=== PATIENT | male | born 1985 | race American Indian/Alaskan Native ===

== ENCOUNTER 2017-04-23 16:37 | Emergency (ER) | payer OTHER ==
[2017-04-23 16:37] VITALS: BMI 38.4
[2017-04-23 16:53] VITALS: RESP 18; TEMP 99
[2017-04-23] MEDS ORDERED: Albuterol-Ipratrop 3 mg / 0.5 (3 ml) UD IH STA ×3 (17:04→18:32)
--- NOTE | 2017-04-23 17:16 | ED PDOC ---
Arrival/HPI - General Chief Complaint: Respiratory Distress Time Seen by Provider: 04/23/17 17:04 Historian: Patient - History of Present Illness Narrative History of Present Illness (Text): 04/23/17 17:05 Marciano Osorio is a 31 year old male, whose past medical history includes asthma, who presents to the emergency department complaining of coughing and shortness of breath since this morning. Patient states that coughing started first this morning causing him to use his nebulizer, then patient began to feel short of breath later on and used his nebulizer again. Patient denies any fevers or any other complaint at this time. Patient endorses that he smokes 10 cigarettes a day. Patient also occasionally smokes marijuana and drinks alcohol. Time/Duration: 4-6 hours Symptom Onset: Gradual Symptom Course: Unchanged Activities at Onset: Rest Context: Home Past Medical History - Provider Review Nursing Documentation Reviewed: Yes - Infectious Disease Hx of Infectious Diseases: None - Tetanus Immunization Tetanus Immunization: Unknown - Cardiac Hx Cardiac Disorders: No - Pulmonary Hx Respiratory Disorders: Yes (SMOKES CIGARETTES) Hx Asthma: Yes Hx Bronchitis: Yes Hx Pneumonia: Yes - Neurological Hx Neurological Disorder: No - HEENT Hx HEENT Disorder: No - Renal Hx Renal Disorder: No - Endocrine/Metabolic Hx Endocrine Disorders: No - Hematological/Oncological Hx Blood Disorders: No - Integumentary Hx Dermatological Disorder: No - Musculoskeletal/Rheumatological Hx Musculoskeletal Disorders: Yes (BULGING DISC-EPIDURALS) Hx Back Pain: Yes Hx Falls: No Hx Herniated Disk: Yes (EPIDURALS) - Gastrointestinal Hx Gastrointestinal Disorders: No - Genitourinary/Gynecological Hx Genitourinary Disorders: No - Psychiatric Hx Psychophysiologic Disorder: (OBESITY,SRINKS ALCOHOL OCCASIONALLY,SMOKES CIGARETTES PK A WEEK) Hx Depression: No Hx Emotional Abuse: No Hx Physical Abuse: No Hx Substance Use: No - Past Surgical History Past Surgical History: No Previous - Suicidal Assessment Feels Threatened In Home Enviroment: No Family/Social History - Physician Review Nursing Documentation Reviewed: Yes Family/Social History: No Known Family HX Smoking Status: Light Smoker < 10 Cigarettes Daily Hx Alcohol Use: Yes (WEEKENDS OR OCCASIONALLY/SOCIALLY) Hx Substance Use: No Hx Substance Use Treatment: No Allergies/Home Meds Allergies/Adverse Reactions: Allergies No Known Allergies Allergy (Verified 04/23/17 16:59) Review of Systems - Physician Review All systems were reviewed & negative as marked: Yes - Review of Systems Constitutional: absent: Fevers, Night Sweats Eyes: absent: Vision Changes ENT: absent: Hearing Changes Respiratory: SOB, Cough Gastrointestinal: absent: Abdominal Pain Genitourinary Male: absent: Urinary Output Changes Musculoskeletal: absent: Back Pain, Neck Pain Skin: absent: Rash, Pruritis Neurological: absent: Headache, Dizziness Endocrine: absent: Polyuria Hemo/Lymphatic: absent: Easy Bleeding Psychiatric: absent: Depression Physical Exam Vital Signs Reviewed: Yes Vital Signs Temp Pulse Resp BP Pulse Ox 04/23/17 19:02 100 H 18 113/57 L 99 04/23/17 16:55 18 96 04/23/17 16:50 99 F 109 H 18 113/95 H 96 Temperature: Afebrile Blood Pressure: Hypertensive Pulse: Tachycardic Respiratory Rate: Normal Appearance: Positive for: Well-Appearing, Non-Toxic, Comfortable, Other (Obese) Pain Distress: None Mental Status: Positive for: Alert and Oriented X 3 - Systems Exam Head: Present: Atraumatic, Normocephalic Pupils: Present: PERRL Extroacular Muscles: Present: EOMI Conjunctiva: Present: Normal Mouth: Present: Moist Mucous Membranes Neck: Present: Normal Range of Motion Respiratory/Chest: Present: Wheezes (Diffuse wheezing) Cardiovascular: Present: Regular Rate and Rhythm, Normal S1, S2. No: Murmurs Abdomen: Present: Normal Bowel Sounds. No: Tenderness, Distention, Peritoneal Signs Back: Present: Normal Inspection Upper Extremity: Present: Normal Inspection. No: Cyanosis, Edema Lower Extremity: Present: Normal Inspection. No: Edema Neurological: Present: GCS=15, CN II-XII Intact, Speech Normal Skin: Present: Warm, Dry, Normal Color. No: Rashes Psychiatric: Present: Alert, Oriented x 3, Normal Insight, Normal Concentration Medical Decision Making ED Course and Treatment: 04/23/17 17:05 Impression: 31 year old male complaining of coughs and shortness of breath since this morning Differential Diagnosis include but are not limited to: sob Rule-out pneumonia vs. Rule-out asthma exacerbation Plan: -- Chest X-ray -- Duoneb and Prednisone -- Reassess and disposition Prior Visits: Notes and results from previous visits were reviewed. Patient last seen in ED on 08/03/16 for wheezing and dry coughs since the day before arrival. Patient was admitted to hospitalist care for further evaluation. Progress Notes: 04/23/17 18:39 On re-evaluation, the patient feels better and is in no acute distress. Will provide Z-joseph and Prednisone for 4 days. I have discussed the results and plan with the patient, who expresses understanding. Patient in agreement with plan to discharged home. Patient is stable for discharge. Patient was instructed to follow up with physician/clinic in 1-2 days or return if symptoms worsen or new concerning symptoms arise. 05/04/17 15:49 - RAD Interpretation Radiology Orders: 04/23/17 17:05 CHEST TWO VIEWS (PA/LAT) [RAD] Stat - Medication Orders Current Medication Orders: Discontinued Medications Albuterol/Ipratropium (Duoneb 3 Mg/0.5 Mg (3 Ml) Ud) 3 ml IH STAT STA Stop: 04/23/17 17:05 Last Admin: 04/23/17 17:12 Dose: 3 ml Albuterol/Ipratropium (Duoneb 3 Mg/0.5 Mg (3 Ml) Ud) 3 ml IH STAT STA Stop: 04/23/17 18:30 Last Admin: 04/23/17 18:49 Dose: 3 ml Albuterol/Ipratropium (Duoneb 3 Mg/0.5 Mg (3 Ml) Ud) 3 ml IH STAT STA Stop: 04/23/17 18:33 Last Admin: 04/23/17 19:05 Dose: 3 ml Ibuprofen (Motrin Tab) 600 mg PO STAT STA Stop: 04/23/17 18:39 Last Admin: 04/23/17 18:52 Dose: 600 mg Prednisone (Prednisone Tab) 50 mg PO STAT STA Stop: 04/23/17 17:05 Last Admin: 04/23/17 17:11 Dose: 50 mg - Scribe Statement The provider has reviewed the documentation as recorded by the Josette Olivares Provider Scribe Attestation: All medical record entries made by the Davinaibe were at my direction and personally dictated by me. I have reviewed the chart and agree that the record accurately reflects my personal performance of the history, physical exam, medical decision making, and the department course for this patient. I have also personally directed, reviewed, and agree with the discharge instructions and disposition. Disposition/Present on Arrival - Present on Arrival Any Indicators Present on Arrival: No History of DVT/PE: No History of Uncontrolled Diabetes: No Urinary Catheter: No History of Decub. Ulcer: No History Surgical Site Infection Following: None - Disposition Have Diagnosis and Disposition been Completed?: Yes Diagnosis: Asthma exacerbation Disposition: HOME/ ROUTINE Disposition Time: 19:00 Patient Plan: Discharge Condition: IMPROVED Discharge Instructions (ExitCare): Asthma (ED) Additional Instructions: follow up with your primary doctor in1 -2 days return to the emergency department with any worsening or concerning symptoms Prescriptions: Azithromycin [Zithromax] 250 mg PO DAILY #6 tab predniSONE [Prednisone] 40 mg PO DAILY #8 tab Referrals: PCP,NO [Primary Care Provider] - Follow up with primary Forms: WORK NOTE
[2017-04-23 19:05] VITALS: BP 113/57; PULSE 100; O2SAT 99
--- NOTE | 2017-04-24 10:39 | RAD ---
HISTORY: asthma COMPARISON: 08/03/2016 TECHNIQUE: Chest PA and lateral FINDINGS: LUNGS: No active pulmonary disease. PLEURA: No significant pleural effusion identified. No pneumothorax apparent. CARDIOVASCULAR: Normal. OSSEOUS STRUCTURES: No significant abnormalities. VISUALIZED UPPER ABDOMEN: Normal. OTHER FINDINGS: None. IMPRESSION: No active disease.
== END 2017-04-23 19:29 | disposition home or self-care (01) ==
LOC: ED 16:37
DX: J45.901 Unspecified asthma with (acute) exacerbation (principal); Z72.0 Tobacco use